=== PATIENT | female | born 2000 | race Native Hawaiian/Other Pacific Islander ===

== ENCOUNTER 2020-10-18 20:30 | Emergency (ER) | payer OTHER ==
[~2020-10-18] VITALS: Ht 144.8 cm; Wt 63.6 kg
[2020-10-18 20:39] VITALS: BP 133/70; TEMP 97.8
[2020-10-18 22:04] VITALS: PULSE 87
[2020-12-08] MEDS ORDERED: CEPHALEXIN500 M1 PO (21:56)
== END 2020-10-18 22:05 | disposition home or self-care (01) ==
LOC: COL.ER 20:30
DX: B34.9 Viral infection, unspecified (principal); Z20.822 Contact with and (suspected) exposure to COVID-19

== ENCOUNTER 2021-08-23 11:40 | Emergency (ER) | payer OTHER ==
[~2021-08-23] VITALS: Ht 147.3 cm; Wt 61.4 kg
[~2021-08-23 11:40] MED LIST: CEPHALEXIN500 M1 PO
[2021-08-23 11:55] VITALS: TEMP 98.1
[2021-08-23 12:00] LABS: COLLECTION METHOD CLEAN CATCH
[2021-08-23 12:14] LABS: MUCOUS Present (NOT PRESENT); PH 6 (5-8); URINE APPEARANCE Cloudy (CLEAR/HAZY); URINE BACTERIA Many /hpf (NONE SEEN); URINE BILIRUBIN Negative (NEGATIVE); URINE BLOOD Negative (NEGATIVE); URINE COLOR Amber (YELLOW); URINE GLUCOSE Negative (NEGATIVE); URINE KETONE Negative (NEGATIVE); URINE LEUKOCYTE ESTERASE Negative (NEGATIVE); URINE NITRATE Positive (NEGATIVE); URINE PROTEIN(semi-quant) Negative (NEGATIVE); URINE RBC 0-2 /hpf (0-2)
[2021-08-23 12:20] LABS: BASO % 0.3 % (0.0-2.0); EOS # 0.2 K/mm3 (0.0-0.7); EOS % 1.3 % (0.0-4.0); GRAN % 74.6 % (42.2-75.2); HEMATOCRIT 38.4 % (37.0-47.0); LYMPH # 2.1 K/mm3 (1.2-3.4); LYMPH % 17.5 % (20.0-51.0); MEAN CELL VOLUME 77 fl (80.0-100.0); MEAN CORPUSCULAR HEMOGLOBIN 28 pg (27-31); MEAN CORPUSCULAR HGB CONC 37 g/dl (33.0-37.0); MEAN PLATELET VOLUME 10.7 fl (7.4-10.4); MONO # 0.7 K/mm3 (0.1-0.6); MONO % 5.9 % (1.7-9.3); PLATELET COUNT 266 K/mm3 (130-400); REDCELL DISTRIBUTION WIDTH-CV 14.7 % (11.5-14.5)
[2021-08-23] MEDS ORDERED: MACROBID 1100 MG/CAP PO (13:57)
[2021-08-23] MEDS ORDERED: PROMETHAZINE12.5 M5 PO (14:33)
[2021-08-23] MEDS ORDERED: METROGEL-VAGINA0.75% VG (14:33)
[2021-08-23 14:48] VITALS: BP 96/60; PULSE 74
== END 2021-08-23 14:48 | disposition home or self-care (01) ==
LOC: COL.ER 11:40
PROVIDERS: Physician Assistant
DX: O20.9 Hemorrhage in early pregnancy, unspecified (principal); O23.41 Unspecified infection of urinary tract in pregnancy, first trimester; N39.0 Urinary tract infection, site not specified; O23.591 Infection of other part of genital tract in pregnancy, first trimester; Z3A.08 8 weeks gestation of pregnancy; Z28.310 Unvaccinated for COVID-19
CPT/HCPCS: J0696